=== PATIENT | male | born 1965 | race African-American/Black ===

== ENCOUNTER → 2016-05-28 | Outpatient (CLI) | payer MEDICARE, OTHER ==
[~2016-05-28] VITALS: Ht 172.7 cm; Wt 65.0 kg
[~2016-05-28] MED LIST: ALBU8.5H IH; AMLO-512 PO; ASPI81 PO; CARV25 PO; COLL30OI TP; FERR-89 PO; GABA-531 PO; HYDR50 PO; INSNOV SQ; INSU100I21; IPRA4AER IH; OMEP20 PO; PARI1CAP PO; PERCT10 PO; PHOSLOC PO; RAMI10 PO; SIMV-261 PO; VARE0.5T PO; ZOLP10 PO; [UNRECOGNIZED DRUG - OTHER] PO; [UNRECOGNIZED DRUG - OTHER] PO; [UNRECOGNIZED DRUG - OTHER] PO
[2016-05-28 13:48] VITALS: BP 116/70
== END | disposition home or self-care (01) ==
LOC: HBOWC 13:28
PROVIDERS: ATTEND Emergency Medicine
DX: E11.622 Type 2 diabetes mellitus with other skin ulcer (principal); L97.811 Non-pressure chronic ulcer of other part of right lower leg limited to breakdown of skin; E11.22 Type 2 diabetes mellitus with diabetic chronic kidney disease; N18.6 End stage renal disease; Z99.2 Dependence on renal dialysis; I50.20 Unspecified systolic (congestive) heart failure; E11.42 Type 2 diabetes mellitus with diabetic polyneuropathy; M17.0 Bilateral primary osteoarthritis of knee; Z95.0 Presence of cardiac pacemaker; F17.210 Nicotine dependence, cigarettes, uncomplicated
CPT/HCPCS: 97597

== ENCOUNTER → 2016-06-17 | Outpatient (CLI) | payer MEDICARE, OTHER ==
[~2016-06-17] MED LIST changes: -FERR-89 PO; -PHOSLOC PO; -RAMI10 PO; -[UNRECOGNIZED DRUG - OTHER] PO
[2016-06-17 15:35] VITALS: BP 142/76
== END | disposition home or self-care (01) ==
LOC: MSR 10:31
PROVIDERS: ATTEND Emergency Medicine
DX: E11.622 Type 2 diabetes mellitus with other skin ulcer (principal); L97.811 Non-pressure chronic ulcer of other part of right lower leg limited to breakdown of skin; E11.22 Type 2 diabetes mellitus with diabetic chronic kidney disease; I13.0 Hypertensive heart and chronic kidney disease with heart failure and stage 1 through stage 4 chronic kidney disease, or unspecified chronic kidney disease; I50.20 Unspecified systolic (congestive) heart failure; N18.6 End stage renal disease; B35.1 Tinea unguium; M17.0 Bilateral primary osteoarthritis of knee; E11.42 Type 2 diabetes mellitus with diabetic polyneuropathy; Z99.2 Dependence on renal dialysis; F17.210 Nicotine dependence, cigarettes, uncomplicated
CPT/HCPCS: 93880; 93925; 97597

== ENCOUNTER → 2016-06-26 | Outpatient (CLI) | payer MEDICARE, OTHER ==
[2016-06-26 11:50] VITALS: BP 114/65
== END | disposition home or self-care (01) ==
LOC: HBOWC 11:03
PROVIDERS: ATTEND Emergency Medicine
DX: E11.622 Type 2 diabetes mellitus with other skin ulcer (principal); L97.811 Non-pressure chronic ulcer of other part of right lower leg limited to breakdown of skin; E83.59 Other disorders of calcium metabolism; M17.0 Bilateral primary osteoarthritis of knee; F17.210 Nicotine dependence, cigarettes, uncomplicated; E11.22 Type 2 diabetes mellitus with diabetic chronic kidney disease; I13.2 Hypertensive heart and chronic kidney disease with heart failure and with stage 5 chronic kidney disease, or end stage renal disease; I50.20 Unspecified systolic (congestive) heart failure; N18.6 End stage renal disease; Z99.2 Dependence on renal dialysis; E11.42 Type 2 diabetes mellitus with diabetic polyneuropathy; Z95.0 Presence of cardiac pacemaker
CPT/HCPCS: 97597

== ENCOUNTER → 2016-07-15 | Outpatient (CLI) | payer MEDICARE, OTHER ==
[~2016-07-15] MED LIST changes: +HYDR-2924 PO; -HYDR50 PO
[2016-07-15 13:54] VITALS: BP 144/78
== END | disposition home or self-care (01) ==
LOC: HBOWC 13:26
PROVIDERS: ATTEND Emergency Medicine
DX: E11.622 Type 2 diabetes mellitus with other skin ulcer (principal); L97.811 Non-pressure chronic ulcer of other part of right lower leg limited to breakdown of skin; E11.22 Type 2 diabetes mellitus with diabetic chronic kidney disease; I13.0 Hypertensive heart and chronic kidney disease with heart failure and stage 1 through stage 4 chronic kidney disease, or unspecified chronic kidney disease; N18.6 End stage renal disease; I50.20 Unspecified systolic (congestive) heart failure; B35.1 Tinea unguium; E11.42 Type 2 diabetes mellitus with diabetic polyneuropathy; M17.0 Bilateral primary osteoarthritis of knee; F17.210 Nicotine dependence, cigarettes, uncomplicated; Z99.2 Dependence on renal dialysis
CPT/HCPCS: 97597; 97598

== ENCOUNTER → 2016-07-29 | Outpatient (CLI) | payer MEDICARE, OTHER ==
[2016-07-29 14:06] VITALS: BP 113/71
== END | disposition home or self-care (01) ==
LOC: HBOWC 13:30
PROVIDERS: ATTEND Emergency Medicine
DX: E11.622 Type 2 diabetes mellitus with other skin ulcer (principal); L97.811 Non-pressure chronic ulcer of other part of right lower leg limited to breakdown of skin; M17.0 Bilateral primary osteoarthritis of knee; E11.22 Type 2 diabetes mellitus with diabetic chronic kidney disease; I13.2 Hypertensive heart and chronic kidney disease with heart failure and with stage 5 chronic kidney disease, or end stage renal disease; I50.20 Unspecified systolic (congestive) heart failure; N18.6 End stage renal disease; E11.40 Type 2 diabetes mellitus with diabetic neuropathy, unspecified; Z99.2 Dependence on renal dialysis; B35.1 Tinea unguium; Z95.0 Presence of cardiac pacemaker; F17.210 Nicotine dependence, cigarettes, uncomplicated
CPT/HCPCS: 97597; 97598

== ENCOUNTER → 2016-08-12 | Outpatient (CLI) | payer MEDICARE, OTHER ==
[~2016-08-12] MED LIST changes: -HYDR-2924 PO; +HYDR50 PO; +LIDOCAINE HCL 4% 50 ML SOLUTION TP ONE
[2016-08-12 08:19] VITALS: BP 135/80
== END | disposition home or self-care (01) ==
LOC: HBOWC 08:03
PROVIDERS: ATTEND Emergency Medicine
DX: E11.622 Type 2 diabetes mellitus with other skin ulcer (principal); L97.811 Non-pressure chronic ulcer of other part of right lower leg limited to breakdown of skin; M17.0 Bilateral primary osteoarthritis of knee; E11.22 Type 2 diabetes mellitus with diabetic chronic kidney disease; I13.2 Hypertensive heart and chronic kidney disease with heart failure and with stage 5 chronic kidney disease, or end stage renal disease; I50.9 Heart failure, unspecified; N18.6 End stage renal disease; B35.1 Tinea unguium; E11.42 Type 2 diabetes mellitus with diabetic polyneuropathy; E83.59 Other disorders of calcium metabolism; F17.210 Nicotine dependence, cigarettes, uncomplicated; Z99.2 Dependence on renal dialysis; Z95.0 Presence of cardiac pacemaker
CPT/HCPCS: 97597; 97598